=== PATIENT | male | born 1980 | race Caucasian/White ===

== ENCOUNTER 2017-09-13 21:53 | Emergency (ER) | payer SELFPAY ==
[~2017-09-13] VITALS: Ht 170.1 cm; Wt 68.0 kg
[2017-09-13 22:25] LABS: BASO # 0.1 10*3/uL (0.0-0.1); BASO % 0.4 % (0.0-1.0); EOS % 0.3 % (1.0-4.0); HEMATOCRIT 39.9 % (42.0-52.0); HEMOGLOBIN 13.6 g/dl (14.0-18.0); LYMPH # 3.2 10*3/uL (1.3-4.4); LYMPH % 27.9 % (27.0-41.0); MEAN CELL VOLUME 89.7 fl (80.0-94.0); MEAN CORPUSCULAR HGB 30.6 pg (27.0-31.0); MEAN CORPUSCULAR HGB CONC 34.1 g/dl (33.0-37.0); MEAN PLATELET VOLUME 8.7 fl (9.6-12.3); MONO # 0.6 10*3/uL (0.1-1.0); MONO % 4.8 % (3.0-9.0); NEUT # 7.5 10*3/uL (2.3-7.9); NEUT % 65.4 % (47.0-73.0); PLATELET COUNT AUTOMATED 325 10*3/uL (130-400); RED BLOOD COUNT 4.45 10*6/uL (4.50-5.90); RED CELL DISTRI WIDTH 12.8 % (0-14.5); WHITE BLOOD COUNT 11.5 10*3/uL (4.8-10.8)
[2017-09-13 22:45] LABS: ALBUMIN 3.6 gm/dl (3.1-4.5); ALKALINE PHOSPHATASE 82 U/L (45-117); BUN 15 mg/dl (7-24); CHLORIDE 104 mmol/L (98-107); CREATININE 0.93 mg/dL (0.70-1.30); POTASSIUM 3.6 mmol/L (3.5-5.1); SGOT/AST 32 IU/L (3-35); SGPT/ALT 102 U/L (12-78); SODIUM 138 mmol/L (136-145); TOTAL PROTEIN 7.8 gm/dL (6.4-8.2)
[2017-09-13 22:46] LABS: ETHYL ALCOHOL < 3.0 mg/dl (<3)
[2017-09-13 22:47] LABS: ACETAMINOPHEN (TYLENOL) < 2.0 ug/ml (10-30)
[2017-09-14 00:44] LABS: BILIRUBIN NEGATIVE (NEGATIVE); BLOOD NEGATIVE (NEGATIVE); CLARITY CLEAR (CLEAR); COLOR YELLOW (YELLOW); GLUCOSE NEGATIVE (NEGATIVE); KETONE NEGATIVE (NEGATIVE); LEUKO ESTERASE NEGATIVE (NEGATIVE); NITRITE NEGATIVE (NEGATIVE); PH 8.5 (5.0-9.0); UROBILINOGEN 0.2 E.U./dl (0.2-1.0)
[2017-09-14 00:55] LABS: URINE AMPHETAMINES < 1000 (1000ng/ml); URINE BARBITURATES < 200 (200ng/ml); URINE BENZODIAZEPINES < 200 (200ng/ml); URINE CANNABINOIDS (THC) > 50 (50ng/ml); URINE COCAINE > 300 (300ng/ml); URINE METHADONE < 300 (300ng/ml); URINE OPIATES < 300 (300ng/ml); WBC 0-2 wbc/hpf (0-5)
[2017-09-14 00:57] LABS: URINE PHENCYCLIDINE < 25 (25ng/ml)
== END 2017-09-14 09:38 | disposition home or self-care (01) ==
LOC: ED 21:53
PROVIDERS: Student in an Organized Health Care Education/Training Program
DX: F11.10 Opioid abuse, uncomplicated (principal); F32.9 Major depressive disorder, single episode, unspecified

== ENCOUNTER 2017-12-17 01:34 | Emergency (ER) | payer OTHER ==
[~2017-12-17] VITALS: Ht 180.3 cm; Wt 77.1 kg
[2017-12-17 02:10] LABS: BASO % 0.2 % (0.0-1.0); EOS % 0.1 % (1.0-4.0); HEMATOCRIT 41.1 % (42.0-52.0); HEMOGLOBIN 13.5 g/dl (14.0-18.0); LYMPH # 2.5 10*3/uL (1.3-4.4); LYMPH % 15.6 % (27.0-41.0); MEAN CELL VOLUME 87.6 fl (80.0-94.0); MEAN CORPUSCULAR HGB 28.8 pg (27.0-31.0); MEAN CORPUSCULAR HGB CONC 32.8 g/dl (33.0-37.0); MEAN PLATELET VOLUME 8.8 fl (9.6-12.3); MONO % 6.4 % (3.0-9.0); NEUT # 12.4 10*3/uL (2.3-7.9); NEUT % 77.5 % (47.0-73.0); PLATELET COUNT AUTOMATED 290 10*3/uL (130-400); RED BLOOD COUNT 4.69 10*6/uL (4.50-5.90); RED CELL DISTRI WIDTH 13.1 % (0-14.5); WHITE BLOOD COUNT 16.1 10*3/uL (4.8-10.8)
[2017-12-17 02:26] LABS: ALBUMIN 4.3 gm/dl (3.1-4.5); ALKALINE PHOSPHATASE 67 U/L (45-117); BUN 21 mg/dl (7-24); CHLORIDE 107 mmol/L (98-107); POTASSIUM 3.5 mmol/L (3.5-5.1); SODIUM 139 mmol/L (136-145)
[2017-12-17 02:30] LABS: SGOT/AST 22 IU/L (3-35); SGPT/ALT 43 U/L (12-78); TOTAL PROTEIN 7.5 gm/dL (6.4-8.2)
[2017-12-17] MEDS ORDERED: AUGMENTIN 875875 MG PO (02:31)
== END 2017-12-17 02:47 | disposition left against medical advice (07) ==
LOC: ED 01:34
PROVIDERS: Emergency Medicine Emergency Medical Services
DX: L03.113 Cellulitis of right upper limb (principal); F19.10 Other psychoactive substance abuse, uncomplicated; F17.200 Nicotine dependence, unspecified, uncomplicated; F11.10 Opioid abuse, uncomplicated; F32.9 Major depressive disorder, single episode, unspecified; F14.10 Cocaine abuse, uncomplicated; Z90.89 Acquired absence of other organs

== ENCOUNTER 2017-12-17 17:22 | Inpatient (IN) | payer OTHER ==
[~2017-12-17] VITALS: Ht 180.3 cm; Wt 76.7 kg
[~2017-12-17 17:22] MED LIST: AUGMENTIN 875875 MG PO
[2017-12-17 17:40] VITALS: BP 115/81
[2017-12-17 18:33] LABS: BASO % 0.2 % (0.0-1.0); EOS % 0.1 % (1.0-4.0); HEMATOCRIT 41.8 % (42.0-52.0); HEMOGLOBIN 13.8 g/dl (14.0-18.0); LYMPH # 1.9 10*3/uL (1.3-4.4); MEAN CELL VOLUME 87.6 fl (80.0-94.0); MEAN CORPUSCULAR HGB 28.9 pg (27.0-31.0); MEAN PLATELET VOLUME 8.8 fl (9.6-12.3); MONO # 1.4 10*3/uL (0.1-1.0); MONO % 8.1 % (3.0-9.0); NEUT # 13.9 10*3/uL (2.3-7.9); NEUT % 80.3 % (47.0-73.0); PLATELET COUNT AUTOMATED 275 10*3/uL (130-400); RED BLOOD COUNT 4.77 10*6/uL (4.50-5.90); RED CELL DISTRI WIDTH 12.9 % (0-14.5); WHITE BLOOD COUNT 17.3 10*3/uL (4.8-10.8)
[2017-12-17 18:47] LABS: ALBUMIN 4.1 gm/dl (3.1-4.5); ALKALINE PHOSPHATASE 66 U/L (45-117); BUN 16 mg/dl (7-24); CHLORIDE 105 mmol/L (98-107); CREATININE 1.06 mg/dL (0.70-1.30); POTASSIUM 3.4 mmol/L (3.5-5.1); SGOT/AST 20 IU/L (3-35); SGPT/ALT 44 U/L (12-78); SODIUM 138 mmol/L (136-145); TOTAL PROTEIN 7.8 gm/dL (6.4-8.2)
[2017-12-17 20:10] VITALS: BP 128/72; BP 128/78
[2017-12-18] VITALS: BP 104/58
[2017-12-18 07:43] LABS: BASO # 0.1 10*3/uL (0.0-0.1); BASO % 0.3 % (0.0-1.0); EOS # 0.2 10*3/uL (0.0-0.4); HEMATOCRIT 36.7 % (42.0-52.0); LYMPH # 2.2 10*3/uL (1.3-4.4); LYMPH % 14.9 % (27.0-41.0); MEAN CELL VOLUME 89.1 fl (80.0-94.0); MEAN CORPUSCULAR HGB 29.1 pg (27.0-31.0); MEAN CORPUSCULAR HGB CONC 32.7 g/dl (33.0-37.0); MEAN PLATELET VOLUME 8.9 fl (9.6-12.3); MONO # 1.5 10*3/uL (0.1-1.0); NEUT # 10.8 10*3/uL (2.3-7.9); NEUT % 73.4 % (47.0-73.0); PLATELET COUNT AUTOMATED 225 10*3/uL (130-400); RED BLOOD COUNT 4.12 10*6/uL (4.50-5.90); RED CELL DISTRI WIDTH 13.1 % (0-14.5); WHITE BLOOD COUNT 14.7 10*3/uL (4.8-10.8)
[2017-12-18 08:17] LABS: BUN 12 mg/dl (7-24); CHLORIDE 111 mmol/L (98-107); CREATININE 1.06 mg/dL (0.70-1.30); PHOSPHOROUS 2.2 mg/dL (2.5-4.9); POTASSIUM 3.8 mmol/L (3.5-5.1); SODIUM 140 mmol/L (136-145)
[2017-12-18 08:29] LABS: CHOLESTEROL 76 mg/dL (<200); HDL CHOLESTEROL 37 mg/dl (40-60); LDL CHOLESTEROL 29 mg/dL (9-159); TRIGLYCERIDES 49 mg/dl (<150); VLDL CHOLESTEROL 10 mg/dL (6-40)
[2017-12-18 08:42] VITALS: BP 111/57
[2017-12-18 10:06] LABS: VITAMIN D, 25-HYDROXY 16.7 ng/mL (30-100)
[2017-12-18 12:00] VITALS: BP 119/59
[2017-12-18 16:00] VITALS: BP 91/73
[2017-12-18 20:00] VITALS: BP 121/70
[2017-12-19] VITALS: BP 120/66
[2017-12-19 07:42] LABS: BASO % 0.3 % (0.0-1.0); EOS # 0.4 10*3/uL (0.0-0.4); EOS % 3.4 % (1.0-4.0); HEMOGLOBIN 11.8 g/dl (14.0-18.0); LYMPH % 15.3 % (27.0-41.0); MEAN CELL VOLUME 89.3 fl (80.0-94.0); MEAN CORPUSCULAR HGB 29.3 pg (27.0-31.0); MEAN CORPUSCULAR HGB CONC 32.8 g/dl (33.0-37.0); MEAN PLATELET VOLUME 8.9 fl (9.6-12.3); MONO # 1.2 10*3/uL (0.1-1.0); MONO % 9.1 % (3.0-9.0); NEUT # 9.4 10*3/uL (2.3-7.9); NEUT % 71.5 % (47.0-73.0); PLATELET COUNT AUTOMATED 244 10*3/uL (130-400); RED BLOOD COUNT 4.03 10*6/uL (4.50-5.90); WHITE BLOOD COUNT 13.1 10*3/uL (4.8-10.8)
[2017-12-19 08:00] VITALS: BP 105/59
[2017-12-19 08:13] LABS: ALBUMIN 2.8 gm/dl (3.1-4.5); ALKALINE PHOSPHATASE 49 U/L (45-117); BUN 7 mg/dl (7-24); CHLORIDE 109 mmol/L (98-107); CREATININE 0.96 mg/dL (0.70-1.30); SGOT/AST 42 IU/L (3-35); SGPT/ALT 58 U/L (12-78); SODIUM 141 mmol/L (136-145); TOTAL PROTEIN 6.3 gm/dL (6.4-8.2)
[2017-12-19 12:17] VITALS: BP 124/68
[2017-12-19 16:00] VITALS: BP 98/71
[2017-12-19 20:00] VITALS: BP 111/74
[2017-12-20] VITALS: BP 120/59
[2017-12-20 07:19] LABS: BASO % 0.4 % (0.0-1.0); EOS # 0.4 10*3/uL (0.0-0.4); EOS % 4.8 % (1.0-4.0); HEMATOCRIT 35.9 % (42.0-52.0); HEMOGLOBIN 11.6 g/dl (14.0-18.0); LYMPH # 1.5 10*3/uL (1.3-4.4); MEAN CELL VOLUME 89.5 fl (80.0-94.0); MEAN CORPUSCULAR HGB 28.9 pg (27.0-31.0); MEAN CORPUSCULAR HGB CONC 32.3 g/dl (33.0-37.0); MEAN PLATELET VOLUME 9.2 fl (9.6-12.3); MONO # 0.7 10*3/uL (0.1-1.0); MONO % 9.4 % (3.0-9.0); PLATELET COUNT AUTOMATED 244 10*3/uL (130-400); RED BLOOD COUNT 4.01 10*6/uL (4.50-5.90); RED CELL DISTRI WIDTH 12.7 % (0-14.5); WHITE BLOOD COUNT 7.7 10*3/uL (4.8-10.8)
[2017-12-20 07:45] LABS: BUN 6 mg/dl (7-24); CHLORIDE 110 mmol/L (98-107); CREATININE 0.89 mg/dL (0.70-1.30); POTASSIUM 3.9 mmol/L (3.5-5.1); SODIUM 143 mmol/L (136-145)
[2017-12-20 08:00] VITALS: BP 112/66
[2017-12-20 12:00] VITALS: BP 120/77
[2017-12-20 16:00] VITALS: BP 128/67
[2017-12-20 20:00] VITALS: BP 125/62
[2017-12-21] VITALS: BP 125/69
[2017-12-22 08:10] LABS: HIV 1+2 AB + HIV1 P24 AG Non Reactive (Non Reactive)
[2017-12-22 13:03] LABS: HEPATITIS B SURFACE AG Negative (Negative)
[2017-12-23 10:56] LABS: HEPATITIS C VIRUS ANTIBODY >11.0 s/co (0.0-0.9)
== END 2017-12-21 02:24 | disposition left against medical advice (07) | DRG 872 ==
LOC: ED 17:22 → 5E 19:02 → EDHOLD 19:02 → 5E 19:38
PROVIDERS: Family Medicine; Internal Medicine Infectious Disease; Nurse Practitioner Family; Student in an Organized Health Care Education/Training Program
DX: A41.9 Sepsis, unspecified organism (principal); F33.9 Major depressive disorder, recurrent, unspecified; L03.113 Cellulitis of right upper limb; E87.6 Hypokalemia; F14.10 Cocaine abuse, uncomplicated; Z53.21 Procedure and treatment not carried out due to patient leaving prior to being seen by health care provider; F41.1 Generalized anxiety disorder; D64.9 Anemia, unspecified; F17.210 Nicotine dependence, cigarettes, uncomplicated; Z79.2 Long term (current) use of antibiotics; Z86.19 Personal history of other infectious and parasitic diseases; Z83.6 Family history of other diseases of the respiratory system; Z81.1 Family history of alcohol abuse and dependence

== ENCOUNTER 2017-12-21 02:42 | Inpatient (IN) | payer OTHER ==
[~2017-12-21] VITALS: Ht 180.3 cm; Wt 76.7 kg
[2017-12-21 03:10] VITALS: BP 156/72
[2017-12-21 04:00] VITALS: BP 120/71
[2017-12-21 08:00] VITALS: BP 140/68
[2017-12-21 09:21] LABS: BASO % 0.3 % (0.0-1.0); EOS # 0.2 10*3/uL (0.0-0.4); EOS % 2.7 % (1.0-4.0); HEMATOCRIT 34.9 % (42.0-52.0); HEMOGLOBIN 11.5 g/dl (14.0-18.0); LYMPH # 1.9 10*3/uL (1.3-4.4); LYMPH % 21.2 % (27.0-41.0); MEAN CELL VOLUME 88.8 fl (80.0-94.0); MEAN CORPUSCULAR HGB 29.3 pg (27.0-31.0); MEAN PLATELET VOLUME 8.9 fl (9.6-12.3); MONO # 0.7 10*3/uL (0.1-1.0); MONO % 7.3 % (3.0-9.0); PLATELET COUNT AUTOMATED 280 10*3/uL (130-400); RED BLOOD COUNT 3.93 10*6/uL (4.50-5.90); RED CELL DISTRI WIDTH 12.7 % (0-14.5); WHITE BLOOD COUNT 8.9 10*3/uL (4.8-10.8)
[2017-12-21 09:37] LABS: ALBUMIN 2.8 gm/dl (3.1-4.5); ALKALINE PHOSPHATASE 63 U/L (45-117); BUN 6 mg/dl (7-24); CHLORIDE 106 mmol/L (98-107); CREATININE 1.12 mg/dL (0.70-1.30); POTASSIUM 3.7 mmol/L (3.5-5.1); SGOT/AST 90 IU/L (3-35); SGPT/ALT 154 U/L (12-78); SODIUM 140 mmol/L (136-145); TOTAL PROTEIN 6.8 gm/dL (6.4-8.2)
[2017-12-21 09:48] LABS: TROPONIN I < 0.015 ng/ml (<0.045)
[2017-12-21 12:00] VITALS: BP 110/58
[2017-12-21 16:10] VITALS: BP 116/74
[2017-12-21 20:00] VITALS: BP 110/62
[2017-12-22] VITALS (9 sets, daily range): BP systolic 103–131; BP diastolic 54–97
[2017-12-22 07:49] LABS: ALBUMIN 2.8 gm/dl (3.1-4.5); ALKALINE PHOSPHATASE 58 U/L (45-117); BUN 7 mg/dl (7-24); CHLORIDE 107 mmol/L (98-107); CREATININE 0.92 mg/dL (0.70-1.30); POTASSIUM 4.4 mmol/L (3.5-5.1); SGOT/AST 53 IU/L (3-35); SGPT/ALT 139 U/L (12-78); SODIUM 141 mmol/L (136-145); TOTAL PROTEIN 6.9 gm/dL (6.4-8.2)
[2017-12-22 08:28] LABS: BASO # 0.1 10*3/uL (0.0-0.1); BASO % 0.9 % (0.0-1.0); EOS # 0.4 10*3/uL (0.0-0.4); EOS % 5.7 % (1.0-4.0); HEMATOCRIT 39.8 % (42.0-52.0); HEMOGLOBIN 13.2 g/dl (14.0-18.0); LYMPH # 2.6 10*3/uL (1.3-4.4); LYMPH % 34.6 % (27.0-41.0); MEAN CELL VOLUME 88.1 fl (80.0-94.0); MEAN CORPUSCULAR HGB 29.2 pg (27.0-31.0); MEAN CORPUSCULAR HGB CONC 33.2 g/dl (33.0-37.0); MEAN PLATELET VOLUME 9.1 fl (9.6-12.3); MONO # 0.8 10*3/uL (0.1-1.0); MONO % 10.4 % (3.0-9.0); NEUT # 3.6 10*3/uL (2.3-7.9); NEUT % 47.9 % (47.0-73.0); RED BLOOD COUNT 4.52 10*6/uL (4.50-5.90); RED CELL DISTRI WIDTH 13.1 % (0-14.5); WHITE BLOOD COUNT 7.5 10*3/uL (4.8-10.8)
[2017-12-22 08:30] LABS: PLATELET COUNT AUTOMATED 270 10*3/uL (130-400)
[2017-12-23] VITALS: BP 124/72
[2017-12-23 06:35] VITALS: BP 136/65
[2017-12-23 07:18] LABS: BASO # 0.1 10*3/uL (0.0-0.1); BASO % 0.7 % (0.0-1.0); EOS # 0.3 10*3/uL (0.0-0.4); EOS % 4.9 % (1.0-4.0); HEMATOCRIT 40.4 % (42.0-52.0); LYMPH # 2.9 10*3/uL (1.3-4.4); LYMPH % 42.2 % (27.0-41.0); MEAN CELL VOLUME 89.8 fl (80.0-94.0); MEAN CORPUSCULAR HGB 28.9 pg (27.0-31.0); MEAN CORPUSCULAR HGB CONC 32.2 g/dl (33.0-37.0); MEAN PLATELET VOLUME 8.6 fl (9.6-12.3); MONO # 0.6 10*3/uL (0.1-1.0); MONO % 9.3 % (3.0-9.0); NEUT # 2.9 10*3/uL (2.3-7.9); NEUT % 42.2 % (47.0-73.0); PLATELET COUNT AUTOMATED 335 10*3/uL (130-400); RED CELL DISTRI WIDTH 12.6 % (0-14.5); WHITE BLOOD COUNT 6.8 10*3/uL (4.8-10.8)
[2017-12-23 07:43] LABS: CHLORIDE 106 mmol/L (98-107); POTASSIUM 4.3 mmol/L (3.5-5.1); SODIUM 140 mmol/L (136-145)
[2017-12-23 07:52] LABS: ALBUMIN 3.1 gm/dl (3.1-4.5); ALKALINE PHOSPHATASE 63 U/L (45-117); BUN 10 mg/dl (7-24); CREATININE 0.96 mg/dL (0.70-1.30); PHOSPHOROUS 4.1 mg/dL (2.5-4.9); SGOT/AST 33 IU/L (3-35); SGPT/ALT 115 U/L (12-78); TOTAL PROTEIN 7.4 gm/dL (6.4-8.2)
[2017-12-23 08:00] VITALS: BP 119/72
[2017-12-23] MEDS ORDERED: SEPTDS PO (11:22)
[2017-12-23] MEDS ORDERED: KEFLEX500 M1 PO (11:22)
[2017-12-23 12:00] VITALS: BP 128/68
[2017-12-23] MEDS ORDERED: PERCOCET 10-321 EACH PO (12:03)
== END 2017-12-23 12:54 | disposition home or self-care (01) | DRG 871 ==
LOC: ED 02:42 → EDHOLD 02:59 → 5E 02:59
PROVIDERS: Emergency Medicine; Internal Medicine
PROC: 0H9DXZZ Drainage of Right Lower Arm Skin, External Approach (ICD-10-PCS; principal; 2017-12-22)
DX: A41.9 Sepsis, unspecified organism (principal); B19.21 Unspecified viral hepatitis C with hepatic coma; L02.413 Cutaneous abscess of right upper limb; L03.113 Cellulitis of right upper limb; D64.9 Anemia, unspecified; F41.1 Generalized anxiety disorder; F90.9 Attention-deficit hyperactivity disorder, unspecified type; F14.10 Cocaine abuse, uncomplicated; F31.9 Bipolar disorder, unspecified; F17.200 Nicotine dependence, unspecified, uncomplicated; F19.90 Other psychoactive substance use, unspecified, uncomplicated; Z82.5 Family history of asthma and other chronic lower respiratory diseases; Z81.1 Family history of alcohol abuse and dependence; Z79.899 Other long term (current) drug therapy

== ENCOUNTER 2018-10-26 06:25 | Inpatient (IN) | payer OTHER ==
[2018-10-26] VITALS (9 sets, daily range): BP systolic 89–111; BP diastolic 51–63
[~2018-10-26] VITALS: Ht 175.2 cm; Wt 75.0 kg
--- NOTE | ~2018-10-26 | EKG ---
[place], [place] ELECTROCARDIOGRAM REPORT NAME: FAUSTINA BEARD UNIT #: [id number] ROOM: [facility] DOCTOR: MARCELLA DRAFT REPORT BIRTHDATE: [birth year] [facility] Test Date: 2018-10-26 Test Time: 07:48:54 Pat Name: FAUSTINA BEARD Department: Room: [facility] Gender: M Occupational Therapy Technician: : 1980 Requested By: LAVELLE HARDY Order Number: [id number] Reading MD: Feliciano Feliz MD Measurements Intervals [place] Rate: 115 P: 9 NV: 130 QRS: 83 QRSD: 118 T: 21 QT: 333 QTc: 461 Interpretive Statements Sinus tachycardia Incomplete right bundle branch block Marked baseline artifact makes interpretation difficult No previous ECG available for comparison Electronically Signed On 10-26-2018 18:00:20 PST by Feliciano Feliz MD CM:EKGRPT:ELECTROCARDIOGRAM REPORT [id number] LAVELLE LUNDBERG DRAFT REPORT LAVELLE HARDY DO
[~2018-10-26 06:25] MED LIST changes: +KEFLEX500 M1 PO; +PERCOCET 10-321 EACH PO; +SEPTDS PO
[2018-10-26 06:48] LABS: HEMATOCRIT 36.7 % (42.0-52.0); HEMOGLOBIN 12.3 g/dl (14.0-18.0); MEAN CELL VOLUME 91.1 fl (80.0-94.0); MEAN CORPUSCULAR HGB 30.5 pg (27.0-31.0); MEAN CORPUSCULAR HGB CONC 33.5 g/dl (33.0-37.0); MEAN PLATELET VOLUME 8.7 fl (9.6-12.3); PLATELET COUNT AUTOMATED 209 10*3/uL (130-400); RED BLOOD COUNT 4.03 10*6/uL (4.50-5.90); RED CELL DISTRI WIDTH 12.7 % (0-14.5); WHITE BLOOD COUNT 2.7 10*3/uL (4.8-10.8)
[2018-10-26 06:58] LABS: ACT PARTIAL THROMBO TIME 19.7 SECONDS (20.8-31.5); INTERNATIONAL NORM RATIO 1.1 (2.0-3.5)
[2018-10-26 07:03] LABS: ALBUMIN 3.2 gm/dl (3.1-4.5); ALKALINE PHOSPHATASE 81 U/L (45-117); BUN 20 mg/dl (7-24); CHLORIDE 107 mmol/L (98-107); CREATININE 1.58 mg/dL (0.70-1.30); POTASSIUM 3.2 mmol/L (3.5-5.1); SGOT/AST 127 IU/L (3-35); SGPT/ALT 147 U/L (12-78); SODIUM 139 mmol/L (136-145); TOTAL PROTEIN 6.3 gm/dL (6.4-8.2)
[2018-10-26 07:08] LABS: ACETAMINOPHEN (TYLENOL) < 5.0 ug/ml (10-30); ATYPICAL LYMPHS 1 % (0-0); ETHYL ALCOHOL < 3.0 mg/dl (<3); PLATELET SUFFICIENCY NORMAL (NORMAL); TOTAL CELLS COUNTED 100 #CELLS; TROPONIN I < 0.015 ng/ml (<0.045)
[2018-10-26 07:42] LABS: BILIRUBIN NEGATIVE (NEGATIVE); BLOOD NEGATIVE (NEGATIVE); CLARITY SL CLOUDY (CLEAR); COLOR YELLOW (YELLOW); GLUCOSE NEGATIVE (NEGATIVE); KETONE NEGATIVE (NEGATIVE); LEUKO ESTERASE NEGATIVE (NEGATIVE); NITRITE NEGATIVE (NEGATIVE); UROBILINOGEN 0.2 E.U./dl (0.2-1.0)
[2018-10-26 07:49] LABS: BACTERIA 1+; MUCOUS 2+
[2018-10-26 07:53] LABS: URINE AMPHETAMINES > 1000 (1000ng/ml); URINE BARBITURATES < 200 (200ng/ml); URINE BENZODIAZEPINES < 200 (200ng/ml); URINE CANNABINOIDS (THC) < 50 (50ng/ml); URINE COCAINE < 300 (300ng/ml); URINE METHADONE < 300 (300ng/ml); URINE OPIATES > 300 (300ng/ml)
[2018-10-26 07:54] LABS: URINE PHENCYCLIDINE < 25 (25ng/ml)
[2018-10-27] VITALS: BP 108/61
[2018-10-27 04:00] VITALS: BP 102/58
[2018-10-27 06:06] LABS: ALBUMIN 2.6 gm/dl (3.1-4.5); BUN 21 mg/dl (7-24); CHLORIDE 109 mmol/L (98-107); CHOLESTEROL 83 mg/dL (<200); CREATININE 1.01 mg/dL (0.70-1.30); PHOSPHOROUS 2.1 mg/dL (2.5-4.9); POTASSIUM 3.8 mmol/L (3.5-5.1); SGOT/AST 80 IU/L (3-35); SGPT/ALT 131 U/L (12-78); SODIUM 140 mmol/L (136-145); TOTAL PROTEIN 5.8 gm/dL (6.4-8.2); TRIGLYCERIDES 55 mg/dl (<150); VLDL CHOLESTEROL 11 mg/dL (6-40)
[2018-10-27 06:13] LABS: ALKALINE PHOSPHATASE 64 U/L (45-117); FREE T4 1.09 ng/dl (0.76-1.46); HDL CHOLESTEROL 38 mg/dl (40-60); LDL CHOLESTEROL 34 mg/dL (9-159)
[2018-10-27 06:15] LABS: HEMATOCRIT 38.5 % (42.0-52.0); HEMOGLOBIN 12.4 g/dl (14.0-18.0); MEAN CORPUSCULAR HGB 30.8 pg (27.0-31.0); MEAN CORPUSCULAR HGB CONC 32.2 g/dl (33.0-37.0); MEAN PLATELET VOLUME 9.9 fl (9.6-12.3); PLATELET COUNT AUTOMATED 216 10*3/uL (130-400); RED BLOOD COUNT 4.02 10*6/uL (4.50-5.90); RED CELL DISTRI WIDTH 13.4 % (0-14.5); WHITE BLOOD COUNT 28.1 10*3/uL (4.8-10.8)
[2018-10-27 06:18] LABS: MEAN CELL VOLUME 95.8 fl (80.0-94.0)
[2018-10-27 06:40] LABS: BURR CELLS FEW; TOTAL CELLS COUNTED 100 #CELLS
[2018-10-27 06:41] LABS: PLATELET SUFFICIENCY NORMAL (NORMAL)
[2018-10-27 07:13] LABS: VITAMIN D, 25-HYDROXY 11.5 ng/mL (30-100)
[2018-10-27 08:00] VITALS: BP 110/60
[2018-10-27 10:00] VITALS: BP 100/50
[2018-10-27 12:00] VITALS: BP 109/64
[2018-10-27 16:00] VITALS: BP 113/68
== END 2018-10-27 18:50 | disposition left against medical advice (07) | DRG 917 ==
LOC: ED 06:25 → EDHOLD 11:30 → ICCU 11:30
PROVIDERS: Internal Medicine; Student in an Organized Health Care Education/Training Program
DX: T43.621A Poisoning by amphetamines, accidental (unintentional), initial encounter (principal); N17.1 Acute kidney failure with acute cortical necrosis; G93.41 Metabolic encephalopathy; R65.11 Systemic inflammatory response syndrome (SIRS) of non-infectious origin with acute organ dysfunction; M62.82 Rhabdomyolysis; E44.0 Moderate protein-calorie malnutrition; E87.2 Acidosis; D64.9 Anemia, unspecified; E87.6 Hypokalemia; R74.0 Nonspecific elevation of levels of transaminase and lactic acid dehydrogenase [LDH]; Z53.21 Procedure and treatment not carried out due to patient leaving prior to being seen by health care provider; R82.71 Bacteriuria; E83.51 Hypocalcemia; F31.9 Bipolar disorder, unspecified; F41.1 Generalized anxiety disorder; F90.9 Attention-deficit hyperactivity disorder, unspecified type; F17.210 Nicotine dependence, cigarettes, uncomplicated; B19.20 Unspecified viral hepatitis C without hepatic coma; F14.10 Cocaine abuse, uncomplicated; D72.819 Decreased white blood cell count, unspecified; Z82.5 Family history of asthma and other chronic lower respiratory diseases; Z81.1 Family history of alcohol abuse and dependence; T40.2X1A Poisoning by other opioids, accidental (unintentional), initial encounter

== ENCOUNTER 2020-05-28 14:40 | Inpatient (IN) | payer OTHER ==
[~2020-05-28] VITALS: Ht 177.8 cm; Wt 72.1 kg
--- NOTE | 2020-05-28 16:00 | NUR ---
A 39, admitted to , under the services of MAKENZIE Murray DO with a diagnosis of OPIATE WITHDRAWAL. Chief complaint is OPIATE WITHDRAWAL. Patient arrived via ambulatory from [place]. Monitor applied. Initial assessment completed. Vital signs taken and recorded. MAKENZIE MURRAY DO notified of admission to the unit. Orders received. See assessment for past medical history, medications and allergies. Patient and/or family oriented to unit. [facility] visitation policy reviewed. Clothing/patient valuable form completed. MELY BROWN
--- NOTE | 2020-05-28 16:30 | NUR ---
PATIENT MEETS [facility]. CINA=18. PATIENT WANTS TO FOLLOW UP WITH [facility] FOR HIS AFTERCARE PLAN. DMITRIY CALL B.A. STORE GROCERY MERCHANDISER
[2020-05-28 16:43] VITALS: BP 168/82
--- NOTE | 2020-05-28 17:13 | NUR ---
PRN MEDS GIVEN AT THIS TIME FOR MULTIPLE COMPLAINTS. CALL LIGHT WITHIN REACH.
[2020-05-28 17:20] LABS: BASO % 0.4 % (0.0-1.0); EOS # 0.1 10*3/uL (0.0-0.4); EOS % 1.8 % (1.0-4.0); HEMATOCRIT 38.8 % (42.0-52.0); LYMPH # 2.6 10*3/uL (1.3-4.4); LYMPH % 34.3 % (27.0-41.0); MEAN CELL VOLUME 90.7 fl (80.0-94.0); MEAN CORPUSCULAR HGB 30.4 pg (27.0-31.0); MEAN CORPUSCULAR HGB CONC 33.5 g/dl (33.0-37.0); MEAN PLATELET VOLUME 9.2 fl (9.6-12.3); MONO # 0.4 10*3/uL (0.1-1.0); MONO % 5.3 % (3.0-9.0); NEUT # 4.4 10*3/uL (2.3-7.9); NEUT % 57.9 % (47.0-73.0); PLATELET COUNT AUTOMATED 318 10*3/uL (130-400); RED BLOOD COUNT 4.28 10*6/uL (4.50-5.90); RED CELL DISTRI WIDTH 12.8 % (0-14.5); WHITE BLOOD COUNT 7.6 10*3/uL (4.8-10.8)
[2020-05-28 17:34] LABS: BILIRUBIN NEGATIVE (NEGATIVE); BLOOD NEGATIVE (NEGATIVE); CLARITY CLEAR (CLEAR); COLOR YELLOW (YELLOW); GLUCOSE NEGATIVE (NEGATIVE); KETONE NEGATIVE (NEGATIVE); SPECIFIC GRAVITY 1.025 (1.005-1.030); UROBILINOGEN 0.2 E.U./dl (0.2-1.0)
[2020-05-28 17:35] LABS: LEUKO ESTERASE NEGATIVE (NEGATIVE); NITRITE NEGATIVE (NEGATIVE)
[2020-05-28 17:37] LABS: ALBUMIN 3.8 gm/dl (3.1-4.5); ALKALINE PHOSPHATASE 85 U/L (45-117); BUN 17 mg/dl (7-24); CHLORIDE 108 mmol/L (98-107); CREATININE 0.81 mg/dL (0.70-1.30); POTASSIUM 4.1 mmol/L (3.5-5.1); SGOT/AST 38 IU/L (3-35); SGPT/ALT 60 U/L (12-78); SODIUM 139 mmol/L (136-145); TOTAL PROTEIN 7.6 gm/dL (6.4-8.2)
[2020-05-28 17:41] LABS: URINE AMPHETAMINES > 1000 (1000ng/ml); URINE BARBITURATES < 200 (200ng/ml); URINE BENZODIAZEPINES < 200 (200ng/ml); URINE CANNABINOIDS (THC) < 50 (50ng/ml); URINE COCAINE < 300 (300ng/ml); URINE METHADONE < 300 (300ng/ml); URINE OPIATES < 300 (300ng/ml)
[2020-05-28 17:51] LABS: BACTERIA TRACE; EPITHELIAL CELLS 0-2; MUCOUS 2+; RBC 0-2 rbc/hpf (0-2); WBC 0-2 wbc/hpf (0-5)
[2020-05-28 17:52] LABS: ETHYL ALCOHOL < 3.0 mg/dl (<3)
[2020-05-28 17:53] LABS: URINE PHENCYCLIDINE < 25 (25ng/ml)
--- NOTE | 2020-05-28 18:13 | NUR ---
PER PT, PRN MEDS WERE EFFECTIVE FOR EARLIER COMPLAINTS OF NAUSEA, ANXIETY, RESTLESSNESS, MUSCLE ACHES/PAINS. CALL LIGHT IN REACH.
[2020-05-28 20:00] VITALS: BP 117/56
--- NOTE | 2020-05-28 21:18 | NUR ---
PT DENIES ANY NEEDS. WILL MONITOR.
[2020-05-29] VITALS: BP 123/60
[2020-05-29 08:00] VITALS: BP 122/68
--- NOTE | 2020-05-29 10:44 | NUR ---
SLEEPING. EASILY AWAKENED. CALL LIGHT IN REACH. NO VOICED COMPLAINTS AT THIS TIME.
--- NOTE | 2020-05-29 15:15 | NUR ---
KELLIE STAFF IN TO SEE PATIENT. PATIENT IS STILL WANTING TO FOLLOW UP WITH [facility] FOR THEIR MEDICATION -ASSISTED TREATMENT FOR HIS AFTERCARE PLAN. DMITRIY CALL B.A. PROMPT CARE RN
[2020-05-29 16:00] VITALS: BP 130/57
[2020-05-30] VITALS: BP 131/60
--- NOTE | 2020-05-30 01:29 | NUR ---
PT REMAINS ASLEEP IN BED. NO S/S OF DISTRESS NOTED. WILL CONTINUE TO MONITOR.
--- NOTE | 2020-05-30 02:54 | NUR ---
SCHEDULED SUBUTEX GIVEN PER ORDER. PT DENIES ANY NEED FOR PRN MEDS. SNACKS PROVIDED PER REQUEST. WILL MONITOR. CALL LIGHT IN REACH.
--- NOTE | 2020-05-30 07:30 | NUR ---
RESTING IN BED. VOICES NO CONCERNS AT THIS TIME. RESPS EASY AND REGULAR. ASSESSMENT COMPLETE. CALL LIGHT IN REACH.
[2020-05-30 08:00] VITALS: BP 114/55
--- NOTE | 2020-05-30 12:53 | NUR ---
PATIENT RESTING IN BED SLEEPING AT THIS TIME. RESPS EASY AND REGULAR. CALL LIGHT IN REACH. WILL MONITOR.
--- NOTE | 2020-05-30 13:42 | NUR ---
PATIENT CO MUSCLE ACHES AND RESTLESSNESS. MEDICATED WITH PRN REQUIP AND ROBAXIN. WILL ASSESS EFFECTIVENESS.
--- NOTE | 2020-05-30 13:43 | NUR ---
MEDICATED WITH PRN VISTARIL FOR CO ANXIETY. WILL ASSESS EFFECTIVENESS.
--- NOTE | 2020-05-30 13:46 | NUR ---
PATIENT WILL BE FOLLOWING UP WITH [facility]. PATIENT IS SCHEDULED FOR May AT 8AM. MD STAFF WILL FOLLOW UP WITH PATIENT CONCERNING HIS AFTERCARE PLAN. DMITRIY CALL B.A. VESSEL CREW MEMBER
--- NOTE | 2020-05-30 14:42 | NUR ---
PER PATIENT REQUIP AND ROBAXIN EFFECTIVE.
--- NOTE | 2020-05-30 14:43 | NUR ---
PER PATIENT VISTARIL EFFECTIVE.
--- NOTE | 2020-05-30 15:49 | NUR ---
KELLIE STAFF IN TO SEE PATIENT. REVIEWED PATIENT'S AFTERCARE WITH HIM. PATIENT WILL FOLLOW UP WITH [facility]. DMITRIY CALL B.A. RAILROAD MECHANIC
[2020-05-30 16:00] VITALS: BP 141/67
--- NOTE | 2020-05-30 19:00 | NUR ---
ASSUMED CARE FOR THIS PT AT THIS TIME. PT RESTING QUIETLY IN BED W/EYES CLOSED. NO S/S OF WITHDRAWALS NOTED. CALL LIGHT IN REACH.
[2020-05-31] VITALS: BP 125/65
[2020-05-31 08:00] VITALS: BP 115/65
[2020-05-31] MEDS ORDERED: REQUIP0.25 M1 PO (10:06)
--- NOTE | 2020-05-31 12:00 | NUR ---
Discharge instructions reviewed with patient/family. Patient receptive and verbalizes understanding. Follow-up care arranged. Written instructions given to patient/family. PATIENTS SCRIPTS GIVEN TO HIM, LEFT IN CARE OF HIS FRIEND. JACK OVALLE
== END 2020-05-31 12:00 | disposition home or self-care (01) | DRG 897 ==
LOC: 4E 14:40
PROVIDERS: Nurse Practitioner Adult Health; Student in an Organized Health Care Education/Training Program; ADMIT Internal Medicine
DX: F11.23 Opioid dependence with withdrawal (principal); F19.10 Other psychoactive substance abuse, uncomplicated; F41.1 Generalized anxiety disorder; F90.9 Attention-deficit hyperactivity disorder, unspecified type; B18.2 Chronic viral hepatitis C; D64.9 Anemia, unspecified; F15.10 Other stimulant abuse, uncomplicated; F17.210 Nicotine dependence, cigarettes, uncomplicated; F31.9 Bipolar disorder, unspecified; Z71.6 Tobacco abuse counseling; Z83.6 Family history of other diseases of the respiratory system; Z81.1 Family history of alcohol abuse and dependence

== ENCOUNTER 2024-01-26 19:58 | Emergency (ER) | payer OTHER ==
[~2024-01-26] VITALS: Ht 177.8 cm; Wt 73.5 kg
[~2024-01-26 19:58] MED LIST changes: +REQUIP0.25 M1 PO
[2024-01-26] MEDS ORDERED: SODIUM CHLORIDE 0.9% 1,000 ML IV ONE (20:05)
== END 2024-01-26 20:23 | disposition left against medical advice (07) ==
LOC: ED 19:58
DX: S09.90XA Unspecified injury of head, initial encounter (principal); R55 Syncope and collapse; R42 Dizziness and giddiness; F11.10 Opioid abuse, uncomplicated; F31.9 Bipolar disorder, unspecified; F90.9 Attention-deficit hyperactivity disorder, unspecified type; D64.9 Anemia, unspecified; Z90.89 Acquired absence of other organs; F14.10 Cocaine abuse, uncomplicated; F17.200 Nicotine dependence, unspecified, uncomplicated; F15.10 Other stimulant abuse, uncomplicated; W01.10XA Fall on same level from slipping, tripping and stumbling with subsequent striking against unspecified object, initial encounter; Y93.89 Activity, other specified; Y92.89 Other specified places as the place of occurrence of the external cause; Y99.8 Other external cause status

== ENCOUNTER 2024-06-20 05:48 | Emergency (ER) | payer OTHER ==
[~2024-06-20] VITALS: Ht 177.8 cm; Wt 81.6 kg
[2024-06-20 06:18] LABS: BASO % 0.3 % (0.0-1.0); EOS # 0.1 10*3/uL (0.0-0.4); EOS % 1.2 % (1.0-4.0); HEMATOCRIT 29.6 % (42.0-52.0); LYMPH # 1.8 10*3/uL (1.3-4.4); LYMPH % 15.7 % (27.0-41.0); MEAN CELL VOLUME 89.4 fl (80.0-94.0); MEAN CORPUSCULAR HGB 28.7 pg (27.0-31.0); MEAN CORPUSCULAR HGB CONC 32.1 g/dl (33.0-37.0); MEAN PLATELET VOLUME 8.6 fl (9.6-12.3); MONO # 1.3 10*3/uL (0.1-1.0); MONO % 11.4 % (3.0-9.0); NEUT # 8.1 10*3/uL (2.3-7.9); NEUT % 71.1 % (47.0-73.0); PLATELET COUNT AUTOMATED 495 10*3/uL (130-400); RED BLOOD COUNT 3.31 10*6/uL (4.50-5.90); RED CELL DISTRI WIDTH 12.4 % (0-14.5); WHITE BLOOD COUNT 11.5 10*3/uL (4.8-10.8)
[2024-06-20 06:34] LABS: BUN 16 mg/dl (9-23); CHLORIDE 105 mmol/L (98-107); POTASSIUM 3.5 mmol/L (3.4-5.1)
== END 2024-06-20 08:36 | disposition home or self-care (01) ==
LOC: ED 05:48
PROVIDERS: Internal Medicine
DX: M54.50 Low back pain, unspecified (principal); F15.10 Other stimulant abuse, uncomplicated; F14.10 Cocaine abuse, uncomplicated; F17.200 Nicotine dependence, unspecified, uncomplicated; Z90.89 Acquired absence of other organs

== ENCOUNTER 2024-06-23 09:58 | Emergency (ER) | payer OTHER ==
[~2024-06-23] VITALS: Ht 177.8 cm; Wt 81.6 kg
[2024-06-23] MEDS ORDERED: SODIUM CHLORIDE 0.9% 1,000 ML IV ONE (10:10)
[2024-06-23 10:33] LABS: URINE AMPHETAMINES Positive (1000ng/ml); URINE BARBITURATES Negative (200ng/ml); URINE BENZODIAZEPINES Negative (200ng/ml); URINE CANNABINOIDS (THC) Positive (50ng/ml); URINE COCAINE Positive (300ng/ml); URINE METHADONE Negative (300ng/ml); URINE OPIATES Positive (300ng/ml); URINE PHENCYCLIDINE Negative (25ng/ml)
== END 2024-06-23 10:28 | disposition left against medical advice (07) ==
LOC: ED 09:58
PROVIDERS: Internal Medicine
DX: M54.50 Low back pain, unspecified (principal); R10.9 Unspecified abdominal pain; F15.10 Other stimulant abuse, uncomplicated; F14.10 Cocaine abuse, uncomplicated; F17.200 Nicotine dependence, unspecified, uncomplicated; Z53.29 Procedure and treatment not carried out because of patient's decision for other reasons; Z90.89 Acquired absence of other organs